=== PATIENT | female | born 1995 | race Caucasian/White ===

== ENCOUNTER 2023-03-18 13:32 | Outpatient (CLI) | payer BC | END 2023-03-18 13:33 | disposition home or self-care (01) | LOC: BICMRI 13:32 | PROVIDERS: ATTEND Obstetrics & Gynecology | DX: Z15.01 Genetic susceptibility to malignant neoplasm of breast (principal); N63.11 Unspecified lump in the right breast, upper outer quadrant | CPT/HCPCS: 82565; A9577; C8908 ==

== ENCOUNTER 2023-04-03 13:37 | Outpatient (CLI) | payer BC | END 2023-04-03 13:38 | disposition home or self-care (01) | LOC: BICMAMMO 13:37 | PROVIDERS: ATTEND Obstetrics & Gynecology | DX: N63.10 Unspecified lump in the right breast, unspecified quadrant (principal) | CPT/HCPCS: 77066; G0279 ==

== ENCOUNTER 2024-06-02 13:40 | Outpatient (CLI) | payer BC | END 2024-06-02 13:41 | disposition home or self-care (01) | LOC: BICMAMMO 13:40 | PROVIDERS: ATTEND Obstetrics & Gynecology | DX: N63.10 Unspecified lump in the right breast, unspecified quadrant (principal); N64.9 Disorder of breast, unspecified | CPT/HCPCS: 77066; G0279 ==